=== PATIENT | male | born 1970 | race American Indian/Alaskan Native ===

== ENCOUNTER 2017-02-02 08:30 | Outpatient (CLI) | payer MEDICARE ==
--- NOTE | 2017-02-02 09:35 | XRay Report ---
CHEST 2 VIEWS INDICATION: End-stage renal disease. Positive PPD skin test. COMPARISON: 09/26/2012 FINDINGS: PA and lateral chest radiographs redemonstrate mild exaggerated cardiomediastinal silhouette. Clear lungs. Thoracic spondylosis. Interval Vas-Cath removal. CONCLUSION: No acute disease. Thank you for the opportunity to participate in this patient's care.
== END 2017-02-02 08:31 | disposition home or self-care (01) ==
LOC: XRAY 08:30
DX: N18.6 End stage renal disease (principal); R76.11 Nonspecific reaction to tuberculin skin test without active tuberculosis; M47.814 Spondylosis without myelopathy or radiculopathy, thoracic region
CPT/HCPCS: 71020